=== PATIENT | female | born 1965 | race Caucasian/White ===

== ENCOUNTER 2017-04-25 10:18 | Emergency (ER) | payer SELFPAY ==
[~2017-04-25] VITALS: Ht 175.3 cm; Wt 95.3 kg
[2017-04-25] MEDS ORDERED: ONDANSETRON HCL INJ 2 MG/ML VIAL IV STA ×2 (11:04→12:32)
[2017-04-25] MEDS ORDERED: SODIUM CHLORIDE FLUSH 10 ML SYR INJ PRN (11:15)
[2017-04-25] MEDS ORDERED: SODIUM CHLORIDE 0.9% 1000ML 1,000 ML IV SCH (11:15)
[2017-04-25 11:16] LABS: BASOPHILS # (AUTO) 0.1 (0.0-0.1); BASOPHILS % 0.5 % (0.0-1.0); EOSINOPHILS % 0.1 % (0.0-6.0); HEMATOCRIT 44.1 % (34.2-44.1); HEMOGLOBIN 14.8 g/dL (12.0-16.0); LYMPHOCYTES # (AUTO) 1.7 (1.0-3.2); LYMPHOCYTES % 15.9 % (18.0-39.1); MEAN CORPUSCULAR HEMOGLOBIN 27.2 pg (28-32); MEAN CORPUSCULAR HGB CONC 33.6 g/dL (31-35); MEAN CORPUSCULAR VOLUME 81.1 fL (81-99); MONOCYTES # (AUTO) 0.2 (0.2-0.8); NEUTROPHILS # (AUTO) 8.6 (2.1-6.9); PLATELET COUNT 278 x10e3/uL (140-360); RED BLOOD COUNT 5.44 x10e6/uL (3.6-5.1); RED CELL DISTRIBUTION WIDTH 14.5 % (11.7-14.4)
[2017-04-25 11:29] LABS: ALANINE AMINOTRANSFERASE 106 IU/L (0-55); ALBUMIN 3.8 g/dL (3.5-5.0); ALBUMIN/GLOBULIN RATIO 0.9 (0.8-2.0); ALKALINE PHOSPHATASE 73 IU/L (40-150); ANION GAP 13.8 mmol/L (8-16); BLOOD UREA NITROGEN 12 mg/dL (7-26); BUN/CREATININE RATIO 14 (6-25); CALCIUM 9.5 mg/dL (8.4-10.2); CARBON DIOXIDE 24 mmol/L (22-29); CHLORIDE 106 mmol/L (98-107); CREATINE KINASE 84 IU/L (29-168); CREATININE, SERUM 0.86 mg/dL (0.57-1.11); EST GLOMERULAR FILTRATION RATE > 60 ML/MIN (60-); GLUCOSE 174 mg/dL (74-118); POTASSIUM 3.8 mmol/L (3.5-5.1); SODIUM 140 mmol/L (136-145)
[2017-04-25 11:35] LABS: TROPONIN I < 0.001 ng/mL (0-0.300)
--- NOTE | 2017-04-25 12:19 | Diagnostic Imaging Report ---
PROCEDURE: A single AP view of the chest. COMPARISON: Chest x-ray 01/27/2009. INDICATIONS: DYSPNEA FINDINGS: Lines/tubes: None. Lungs: The lungs are well inflated and clear. There is no evidence of pneumonia or pulmonary edema. Pleura: There is no pleural effusion or pneumothorax. Heart and mediastinum: The heart and the mediastinum are unremarkable. Bones: No acute bony abnormality. IMPRESSION: No acute cardiopulmonary disease. Dictated by: Gonzalo Burch M.D. on 04/25/2017 at 12:27 Electronically approved by: Gonzalo Burch M.D. on 04/25/2017 at 12:27
[2017-04-25] MEDS ORDERED: MORPHINE SULFATE 2 MG/ML SYR IV STA (12:32)
[2017-04-25] MEDS ORDERED: PROMETHAZINE 12.5MG/ NACL 0.9% 12.5 MG/50 ML BAG IV ONE (14:30)
[2017-04-25 15:07] LABS: BILIRUBIN,URINE NEGATIVE (NEGATIVE); KETONES,URINE 2+ (NEGATIVE); LEUKOCYTE ESTERASE ,URINE NEGATIVE (NEGATIVE); NITRITE,URINE NEGATIVE (NEGATIVE); URINE UROBILINOGEN 0.2 mg/dL (0.2 - 1)
[2017-04-25 15:08] LABS: COLOR,URINE YELLOW (YELLOW); PROTEIN,URINE DIPSTICK 1+ (NEGATIVE)
[2017-04-25 15:09] LABS: CLARITY,URINE CLEAR (CLEAR)
[2017-04-25 15:22] LABS: EPITHELIAL CELLS,URINE FEW /LPF; WBC,URINE (MAN) 0-5 /HPF (0-5)
[2017-04-25 15:23] LABS: AMORPHOUS SEDIMENT,URINE FEW (FEW); BACTERIA,URINE FEW /HPF; MUCUS,URINE MODERATE (RARE); RBC,URINE 0-5 /HPF (0-5)
[2017-04-25] MEDS ORDERED: BACITRACIN ZINC 0.9GM TP ONE (15:30)
[2017-04-25 17:33] VITALS: BP 160/81
== END 2017-04-25 17:54 | disposition home or self-care (01) ==
LOC: ER 10:18
DX: R11.2 Nausea with vomiting, unspecified (principal); R19.7 Diarrhea, unspecified; R10.9 Unspecified abdominal pain; A09 Infectious gastroenteritis and colitis, unspecified
CPT/HCPCS: 36415; 71010; 80053; 81001; 82550; 82553; 84484; 85025; 99284; J2270; J2405; J2550; J7030

== ENCOUNTER 2017-05-06 15:37 | Emergency (ER) | payer BC ==
[~2017-05-06] VITALS: Ht 175.3 cm; Wt 95.3 kg
== END 2017-05-06 18:15 | disposition home or self-care (01) ==
LOC: ER 15:37
DX: M79.621 Pain in right upper arm (principal); Z86.718 Personal history of other venous thrombosis and embolism; I10 Essential (primary) hypertension
CPT/HCPCS: 93971; 99282

== ENCOUNTER 2018-09-21 11:37 | Emergency (ER) | payer SELFPAY ==
[~2018-09-21] VITALS: Ht 172.7 cm; Wt 92.5 kg
--- OUTSIDE RECORDS SUMMARY | 2018-09-21 11:40 | XMS REPORT | Encounter Summary ---
Author Organization Unknown Address [address] [place] [id number] Phone [phone] Care Team Providers Care Fork Repairer Name Role Phone Tyler Brewer MD 3 [phone] Reason for Visit Insomnia; Anxiety Instructions 1. Insomnia 2. Anxiety alprazolam 1 mg tablet Discussion Note: None recorded. Patient educational handouts: No information available. Plan of Care Reminders Provider Appointments Return to Office on or around 08/31/2018 Tyler Huffman MD Lab None recorded. Referral None recorded. Procedures None recorded. Surgeries None recorded. Imaging None recorded. Medications Name Start Date alprazolam 0.5 mg tablet Take 1 tablet every day by oral route as needed for 30 days. alprazolam 1 mg tablet take 1 tablet at bedtime and 0.5 in the mornings as needed. B Complex-Vitamin B12 tablet Take 1 tablet every day by oral route. Baby Aspirin 1 tab every day gabapentin 600 mg tablet TAKE ONE (1) TABLET(S) BY MOUTH FOUR TIMES A DAY. lansoprazole 30 mg capsule,delayed release TAKE ONE (1) CAPSULE(S) BY MOUTH ONCE A DAY. lisinopril 20 mg-hydrochlorothiazide 12.5 mg tablet TAKE ONE (1) TABLET(S) BY MOUTH ONCE A DAY DIRECTED. appt reminder 07-30-2018 11:00 AM, Tyler Huffman MD multivitamin 1 tab every day pravastatin 80 mg tablet TAKE ONE (1) TABLET(S) BY MOUTH ONCE A DAY. sumatriptan 100 mg tablet TAKE ONE (1) TABLET(S) BY MOUTH DAILY NEEDED AT ONSET OF HEADACHE. MAY REPEAT IN 2 HOURS IF NEEDED. MAX OF 2 TABS IN A 24 HOUR PERIOD. tramadol 50 mg tablet TAKE ONE (1) TABLET(S) BY MOUTH FOUR TIMES A DAY. venlafaxine ER 150 mg capsule,extended release 24 hr TAKE ONE (1) CAPSULE(S) BY MOUTH ONCE A DAY. zolpidem 10 mg tablet TAKE ONE (1) TABLET(S) BY MOUTH ONCE A DAY AT BEDTIME. Medications Administered None recorded. Vitals Height Weight BMI Blood Pressure 5 ft 8 in 209 lbs 31.8 kg/m2 116/80 mm[Hg] Lab Results None recorded. Allergies Code Code System Name Reaction Severity Status Onset NKDA Problems Name Status Onset Date Source Anxiety Active 01/11/2016 Hyperlipidemia Active 10/12/2016 Insomnia Active 10/12/2016 Benign Essential Hypertension Active 10/12/2016 Acid Reflux Active 10/12/2016 Procedures Date Name Performed by 04/23/2002 Other Information not available Vaccine List Vaccine Type Hep B, unspecified formulation 09/04/2016 Influenza, injectable, MDCK, preservative free, quadrivalent 01/11/20160.5 mL influenza, unspecified formulation 04/23/2014 Tdap 09/04/2016 TST-PPD carla test 09/04/2016 Social History Smoking Status Former Smoker (1 PPW) Past Encounters 08/01/2018 Insomnia; Anxiety Tyler Jm Huffman MD: [address] [place] [address], Ph. History of Present Illness Note:F/u on insomnia and CHAD. Complaining of difficulty staying asleep (sleeping just 3-4 hrs per night). Anxiety has remained stable. Denies restlessness, nervousness, panic attacks, suicidal/homicidal thoughts. Occasional episodes of sadness, lack of energy and poor motivation. Review of Systems Comprehensive General Adult ROS Reported By: Patient Cardiovascular: Cardiovascular: no chest pain, no palpitations, no lightheadedness Respiratory: Respiratory: no cough, no wheezing, no shortness of breath Gastrointestinal: Gastrointestinal: no abdominal pain, no nausea, no vomiting, no constipation, no diarrhea Neurologic: Neurologic: no loss of consciousness, no headaches Psychiatric: Psych: no depression, no alcohol abuse, no suicidal thoughts, sleep disturbances, anxiety Physical Exam General Adult Exam (male) Reported By: Patient Constitutional: General Appearance: healthy-appearing, obese. Level of Distress: NAD Psychiatric: Insight: good judgement. Mental Status: active and alert, normal mood, normal affect. Orientation: to time, to place, to person Head: Head: normocephalic, atraumatic Eyes: Lids and Conjunctivae: non-injected, no discharge Neck: Neck: supple Lungs: Auscultation: breath sounds normal Cardiovascular: Heart Auscultation: RRR, normal S1, normal S2, no murmurs Neurologic: Gait and Station: normal gait. Cranial Nerves: grossly intact. Coordination and Cerebellum: no tremor
--- OUTSIDE RECORDS SUMMARY | 2018-09-21 11:40 | XMS REPORT ---
Author Author [facility] Address Unknown Phone Unavailable Care Team Providers Care Hazardous Substances Engineer Name Role Phone Ana CORONEL Unavailable Unavailable Problems This patient has no known problems. Allergies, Adverse Reactions, Alerts This patient has no known allergies or adverse reactions. Medications This patient has no known medications. Results Test Description Test Time Test Comments Text Results Atomic Results Result Comments CHEST SINGLE (PORTABLE) [place] [address] Patient Name: SARAH BHAT MR #: [id number] : 1965 Age/Sex: 51/F Req #: [id number] Adm Physician: Ordered by: LEONARDA ALATORRE Report #: [id number] Location: ER Room/Bed: Procedure: [id number] DX/CHEST SINGLE (PORTABLE) Exam Date: 04/25/17 Exam Time: 1200 REPORT STATUS: Signed PROCEDURE: A single AP view of the chest. COMPARISON: Chest x-ray 01/27/2009. INDICATIONS: DYSPNEA FINDINGS: Lines/tubes: None. Lungs: The lungs are well inflated and clear. There is no evidence of pneumonia or pulmonary edema. Pleura: There is no pleural effusion or pneumothorax. Heart and mediastinum: The heart and the mediastinum are unremarkable. Bones: No acute bony abnormality. IMPRESSION: No acute cardiopulmonary disease. Dictated by: Tati Burch M.D. on 04/25/2017 at 12:27 Electronically approved by: Tati Burch M.D. on 04/25/2017 at 12:27 Dictated By: TATI BURCH MD 26 Transcribed By: TONO on 04/25/171226 COPY TO: LEONARDA ALATORRE
--- OUTSIDE RECORDS SUMMARY | 2018-09-21 11:40 | XMS REPORT ---
Author Organization Unknown Address [address] [place] [address] Phone [phone] Care Team Providers Care Driver Manager Name Role Phone Tyler Bertrand Unavailable Unavailable Allergies Code Code System Name Reaction Severity Status Onset NKDA Medications Name Status Start Date Stop Date alprazolam 0.5 mg tablet TAKE ONE (1) TABLET(S) BY MOUTH ONCE A DAY NEEDED. Active Not available B Complex-Vitamin B12 tablet Take 1 tablet every day by oral route. Active Not available Baby Aspirin 1 tab every day Active Not available buspirone 10 mg tablet Take 1 tablet twice a day by oral route for 60 days. Completed 05/03/2016 Fish Oil 1 tablet daily Active Not available Fluvirin [id number] 45 mcg (15 mcg x 3)/0.5 mL intramuscular suspension Completed 01/11/2016 gabapentin 600 mg tablet TAKE ONE (1) TABLET(S) BY MOUTH FOUR TIMES A DAY. Active Not available lansoprazole 30 mg capsule,delayed release TAKE ONE (1) CAPSULE(S) BY MOUTH ONCE A DAY. Active Not available lisinopril 20 mg tablet Completed 10/12/2016 lisinopril 20 mg-hydrochlorothiazide 12.5 mg tablet TAKE ONE (1) TABLET(S) BY MOUTH ONCE A DAY DIRECTED. Active Not available lorazepam 1 mg tablet Completed 01/11/2016 meloxicam 15 mg tablet Take 1 tablet every day by oral route as needed for 30 days. Completed 07/10/2017 methylprednisolone acetate 80 mg/mL suspension for injection Take 1 mL by injection route. Completed 01/09/2017 multivitamin 1 tab every day Active Not available naproxen 500 mg tablet Take 1 tablet(s) twice a day by oral route with meals. Completed 01/09/2017 pravastatin 80 mg tablet TAKE ONE (1) TABLET(S) BY MOUTH ONCE A DAY. Active Not available PreserVision AREDS 2 tablets BID Completed 04/12/2017 sumatriptan 100 mg tablet TAKE ONE (1) TABLET(S) BY MOUTH DAILY NEEDED AT ONSET OF HEADACHE. MAY REPEAT IN 2 HOURS IF NEEDED. MAX OF 2 TABS IN A 24 HOUR PERIOD. Active Not available tramadol 50 mg tablet TAKE ONE (1) TABLET(S) BY MOUTH FOUR TIMES A DAY NEEDED. Active Not available venlafaxine ER 150 mg capsule,extended release 24 hr TAKE ONE (1) CAPSULE(S) BY MOUTH ONCE A DAY. Active Not available venlafaxine ER 150 mg tablet,extended release 24 hr TAKE ONE (1) TABLET(S) BY MOUTH ONCE A DAY. Completed 10/12/2016 zolpidem 10 mg tablet Completed 01/11/2016 zolpidem ER 12.5 mg tablet,extended release,multiphase TAKE ONE (1) TABLET(S) BY MOUTH EVERY DAY NEEDED Completed 07/10/2017 Problems Name Status Onset Date Source Hyperlipidemia Unknown 01/11/2016 Anxiety Active 01/11/2016 Migraine Unknown 01/11/2016 Hypertensive Disorder Unknown 01/11/2016 Gastroesophageal Reflux Disease Unknown 01/11/2016 Osteoarthrosis of the Carpometacarpal Joint of the Thumb Unknown 01/11/2016 Bursitis of Hip Unknown 01/11/2016 Insomnia Unknown 02/10/2016 Hyperlipidemia Active 10/12/2016 Insomnia Active 10/12/2016 Benign Essential Hypertension Active 10/12/2016 Acid Reflux Active 10/12/2016 Procedures Date Name Performed by 04/23/2002 Other Notes: ablation uterus Information not available 10/12/[address] [facility] [id number] [place] [address] (Work [address]) Notes: ablation of the uterus-12 years ago Lab Results Date Name Specimen Result Interpretation Description Value Range Status Address 04/12/2017 CMP, Serum or Plasma High Glucose 126 mg/dL 65-99 mg/dL Final [facility]: [address] Normal Urea Nitrogen (BUN) 16 mg/dL 7-25 mg/dL Final [facility]: [address] [place] [address], [place] Normal Creatinine 0.83 mg/dL 0.50-1.05 mg/dL Final [facility]: [address] Normal eGFR Non-afr. Luxembour[place] 81 mL/min/1.73m2 > or=60 mL/min/1.73m2 Final [facility] [address] [facility] eGFR 93 mL/min/1.73m2 > or=60 mL/min/1.73m2 Final [facility]: [address] [facility] BUN/creatinine Ratio not applicable (calc) 6-22 (calc) Final [facility]: [address] [facility] Normal Sodium 142 mmol/L 135-146 mmol/L Final [facility]: [address] [facility] Normal Potassium 4.3 mmol/L 3.5-5.3 mmol/L Final [facility]: [address] [facility] Normal Chloride 102 mmol/L 98-110 mmol/L Final [facility]: [address] [facility] Normal Carbon Dioxide 27 mmol/L 20-31 mmol/L Final [facility]: [address] [facility] Normal Calcium 9.4 mg/dL 8.6-10.4 mg/dL Final [facility]: [address] [facility] Normal Protein, Total 7.3 g/dL 6.1-8.1 g/dL Final [facility]: [address] [facility] Normal Albumin 4.2 g/dL 3.6-5.1 g/dL Final [facility]: [address] [facility] Normal Globulin 3.1 g/dL (calc) 1.9-3.7 g/dL (calc) Final [facility]: [address] [facility] Normal Albumin/globulin Ratio 1.4 (calc) 1.0-2.5 (calc) Final [facility]: [address] [facility] Normal Bilirubin, Total 0.3 mg/dL 0.2-1.2 mg/dL Final [facility]: [address] [facility] Normal Alkaline Phosphatase 58 U/L 33-130 U/L Final [facility]: [address] [facility] Normal Ast 17 U/L 10-35 U/L Final [facility]: [address] [facility] Normal Alt 14 U/L 6-29 U/L Final [facility]: [address] [facility] 04/12/2017 Lipid Panel, Serum Normal Cholesterol, Total 179 mg/dL <200 mg/dL Final [facility]: [address] [place] Low HDL Cholesterol 46 mg/dL >50 mg/dL Final [facility]: [address] [facility] [place] High Triglycerides 331 mg/dL <150 mg/dL Final [facility]: [address] [place] Normal LDL-cholesterol 89 mg/dL (calc) Final [facility]: [address] Normal Chol/hdlc Ratio 3.9 (calc) <5.0 (calc) Final [facility]: [address] [place] High Non HDL Cholesterol 133 mg/dL (calc) <130 mg/dL (calc) Final [facility]: [address] [facility] 10/12/2016 TSH, Serum or Plasma Normal Tsh 0.99 mIU/L Final [facility]: [address] [facility] 10/12/2016 CBC W/ Auto Diff Normal White Blood Cell Count 6.8 thousand/uL 3.8-10.8 thousand/uL Final [facility]: [address] [place] [address] Normal Red Blood Cell Count 4.75 million/uL 3.80-5.10 million/uL Final [facility]: [address] [facility] Normal Hemoglobin 13.1 g/dL 11.7-15.5 g/dL Final [facility]: [address] [facility] Normal Hematocrit 40.5 % 35.0-45.0 % Final [facility]: [address] [facility] Normal Mcv 85.3 fL 80.0-100.0 fL Final [facility]: [address] [facility] Normal Mch 27.6 pg 27.0-33.0 pg Final [facility]: [address] [facility] Normal Mchc 32.4 g/dL 32.0-36.0 g/dL Final [facility]: [address] [facility] High Rdw 15.2 % 11.0-15.0 % Final [facility]: [address] Ashraf [place] Normal Platelet Count 239 thousand/uL 140-400 thousand/uL Final [facility]: [address]raf [place] Normal Mpv 9.1 fL 7.5-12.5 fL Final [facility]: [address] Ashraf [place] Normal Absolute Neutrophils 3910 cells/uL 1494-6016 cells/uL Final [facility]: [address] [place] Normal Absolute Lymphocytes 2373 cells/uL 850-3900 cells/uL Final [facility]: [address] [place] Normal Absolute Monocytes 347 cells/uL 200-950 cells/uL Final [facility]: [address] [place] Normal Absolute Eosinophils 143 cells/uL 15-500 cells/uL Final [facility]: [address] [place] Normal Absolute Basophils 27 cells/uL 0-200 cells/uL Final [facility]: [address] [place] Normal Neutrophils 57.5 % Final [facility]: [address] [place] Normal Lymphocytes 34.9 % Final [facility]: [address] [place] Normal Monocytes 5.1 % Final [facility]: [address] [place] Normal Eosinophils 2.1 % Final [facility]: [address] [place] Normal Basophils 0.4 % Final [facility]: [address] [facility] 10/12/2016 Lipid Panel, Serum Normal Cholesterol, Total 158 mg/dL 125- 200 mg/dL Final [facility]: [address] [facility] Normal HDL Cholesterol 55 mg/dL > or=46 mg/dL Final [facility]: [address] [facility] High Triglycerides 162 mg/dL <150 mg/dL Final [facility]: [address] [facility] Normal LDL-cholesterol 71 mg/dL (calc) <130 mg/dL (calc) Final [facility]: [address] [facility] Normal Chol/hdlc Ratio 2.9 (calc) < or=5.0 (calc) Final [facility]: [address] Normal Non HDL Cholesterol 103 mg/dL (calc) Final [facility]: [address] [facility] 10/12/2016 CMP, Serum or Plasma High Glucose 101 mg/dL 65-99 mg/dL Final [facility]: [address] Normal Urea Nitrogen (BUN) 20 mg/dL 7-25 mg/dL Final [facility]: [address] Normal Creatinine 0.79 mg/dL 0.50-1.05 mg/dL Final [facility]: [address] Normal eGFR Non-afr. [place] 85 mL/min/1.73m2 > or=60 mL/min/1.73m2 Final [facility]: [address] Normal eGFR 99 mL/min/1.73m2 > or=60 mL/min/1.73m2 Final [facility]: [address] BUN/creatinine Ratio not applicable (calc) 6-22 (calc) Final [facility]: [address] Normal Sodium 140 mmol/L 135-146 mmol/L Final [facility]: [address] Normal Potassium 4.6 mmol/L 3.5-5.3 mmol/L Final [facility]: [address] Normal Chloride 101 mmol/L 98-110 mmol/L Final [facility]: [address] Normal Carbon Dioxide 31 mmol/L 20-31 mmol/L Final [facility]: [address] Normal Calcium 9.4 mg/dL 8.6-10.4 mg/dL Final [facility]: [address] Normal Protein, Total 6.8 g/dL 6.1-8.1 g/dL Final [facility]: [address] Normal Albumin 4.1 g/dL 3.6-5.1 g/dL Final [facility]: [address] Normal Globulin 2.7 g/dL (calc) 1.9-3.7 g/dL (calc) Final [facility]: [address] Normal Albumin/globulin Ratio 1.5 (calc) 1.0-2.5 (calc) Final [facility]: [address] Normal Bilirubin, Total 0.3 mg/dL 0.2-1.2 mg/dL Final [facility]: [address] Normal Alkaline Phosphatase 61 U/L 33-130 U/L Final [facility]: [address] Normal Ast 25 U/L 10-35 U/L Final [facility]: [address] Normal Alt 28 U/L 6-29 U/L Final [facility]: [address] [facility] 07/10/2016 CMP, Serum or Plasma Alt 19 U/L 0-55 U/L Final [facility]: [address] Ast 18 U/L 5-34 U/L Final [facility]: [address] Bun 18 mg/dL 7-20 mg/dL Final [facility]: [address] Alk Phos 64 unit/L 40-150 unit/L Final [facility]: [address] Low Glucose 69 mg/dL 70-99 mg/dL Final [facility]: [address] Albumin 4.1 g/dL 3.5-5.0 g/dL Final [facility]: [address] Creatinine 0.85 mg/dL 0.57-1.11 mg/dL Final [facility]: [address] eGFR Non- >60 mL/min/1.73m2 >60 mL/min/1.73m2 Final [facility]: [address] Total Bilirubin 0.3 mg/dL 0.2-1.2 mg/dL Final [facility]: [address] eGFR - >60 mL/min/1.73m2 >60 mL/min/1.73m2 Final [facility]: [address] Sodium 141 mEq/L 137-144 mEq/L Final [facility]: [address] [place] [address], [place] Potassium 4.7 mEq/L 3.5-5.0 mEq/L Final [facility]: [address] [place] [address], [place] Chloride 104 mmol/L 101-110 mmol/L Final [facility]: [address] Total Protein 7.6 g/dL 6.4-8.3 g/dL Final [facility]: [address] [place] [address], [place] Calcium 9.4 mg/dL 8.4-10.2 mg/dL Final [facility]: [address] [place] [place] [address], [place] Co2 23.8 mmol/L 21.0-29.0 mmol/L Final [facility]: [address] Anion Gap 13 calc Final [facility]: [address] [place] [address], [place] 07/10/2016 Lipid Panel, Serum Hdl 51 mg/dL 40-60 mg/dL Final [facility]: [address] High Triglyceride 285 mg/dL 0-149 mg/dL Final [facility]: [address] VLDL Calc. 57 mg/dL Final [facility]: [address] cholesterol/HDL Ratio 5 mg/dL Final [facility]: [address] High non-HDL Cholesterol Calc. 196 mg/dL 0-160 mg/dL Final [facility]: [address] High Cholesterol 247 mg/dL 0-199 mg/dL Final [facility]: [address] High LDL Calc. 139 mg/dL 0-130 mg/dL Final [facility]: [address] [place] [place] [address], [place] 01/14/2016 Drug Screen, Urine No observation recorded. [facility]: [address] [facility] [place] 11/12/2015 Historical Labs No observation recorded. 05/11/2015 CBC W/ Auto Diff No observation recorded. 09/01/2014 CMP, Serum or Plasma No observation recorded. Electrocardiogram No observation recorded. [facility]: [address] [place] [address] Urinalysis, Dipstick Color Glucose negative [facility]: [address] [facility], [place] Color Bilirubin negative [facility]: [address] [facility], [place] Color Ketones negative [facility]: [address] [facility] [place] Color Specific Oliver 1.020 [facility]: [address] [facility] [place] Color Blood negative [facility]: [address] [facility], [place] Color PH 5.5 [facility]: [address] [facility] [place] Color Protein negative [facility]: [address] [facility] [place] Color Urobilinogen 0.2 [facility]: [address] [facility], [place] Color Nitrites negative [facility]: [address] [facility], [place] Color Leukocytes negative [facility]: [address] [facility], [place] Past Encounters 07/10/2017 Anxiety; Hyperlipidemia; Acid Reflux; Bursitis of Hip; Benign Essential Hypertension; Migraine; Hyperglycemia Tyler Huffman MD: [address] [place] [phone], Ph. 04/12/2017 Bursitis of Hip; Anxiety; Hyperlipidemia; Hand Pain Tyler Huffman MD: [address] [place] [phone], Ph. 01/09/2017 Insomnia; Anxiety; Bursitis of Hip Tyler Huffman MD: [address] [place] [phone], Ph. 10/12/2016 Adult Health Examination; Anxiety; Acid Reflux; Benign Essential Hypertension; Hyperlipidemia; Insomnia; Bursitis of Hip; Radial Styloid Tenosynovitis Tyler Huffman MD: [address] [place] [phone], Ph. 07/10/2016 Anxiety; Insomnia; Bursitis of Hip; Benign Essential Hypertension; Hyperlipidemia; Body Mass Index 30+ - Obesity Tyler Huffman MD: [address] [place] [address], Ph. 05/03/2016 Anxiety Tyler Huffman MD: [address] [place] [address], Ph. 04/20/2016 Insomnia; Anxiety Tyler Huffman MD: [address] [place] [phone], Ph. 01/11/2016 Bursitis of Hip; Migraine; Anxiety; Long-term Drug Therapy; Influenza Vaccination Tyler Huffman MD: [address] [place] [phone], Ph. Social History Smoking Status Former Smoker (1 PPW) Notes: quit :age 30 Vaccine List Vaccine Type Hep B, unspecified formulation 09/04/2016 Influenza, injectable, MDCK, preservative free, quadrivalent 01/11/20160.5 mL influenza, unspecified formulation 04/23/2014 Tdap 09/04/2016 TST-PPD carla test 09/04/2016 Plan of Care Reminders Provider Appointments None recorded. Lab None recorded. Referral None recorded. Procedures None recorded. Surgeries None recorded. Imaging None recorded. Vitals 07/10/2017 02:45PM Est Patient Height Weight Blood Pressure 5 ft 8 in 138/80 mm[Hg] 04/12/2017 01:45PM Est Patient Height Weight BMI Blood Pressure 5 ft 8 in 210 lbs 31.9 kg/m2 118/78 mm[Hg] 01/09/2017 04:00PM Est Patient Height Weight BMI Blood Pressure 5 ft 8 in 212 lbs 32.2 kg/m2 (1) 144/94 mm[Hg] (2) 138/88 mm[Hg] 10/12/2016 08:30AM ATHLETIC GEAR CUSTODIAN/EST CPX Height Weight BMI Blood Pressure 5 ft 8 in 212 lbs 32.2 kg/m2 (1) 152/102 mm[Hg] (2) 136/84 mm[Hg] 07/10/2016 04:30PM Work In Same Day Height Weight BMI Blood Pressure 5 ft 8 in 216 lbs 32.8 kg/m2 (1) 156/98 mm[Hg] (2) 144/97 mm[Hg] 05/03/2016 04:30PM Est Patient Height Weight BMI Blood Pressure 5 ft 8 in 216 lbs 32.8 kg/m2 139/98 mm[Hg] 04/20/2016 11:45AM Est Patient Height Weight Blood Pressure 5 ft 8 in 135/90 mm[Hg] 01/11/2016 11:30AM Est Patient Height Weight BMI Blood Pressure 5 ft 8 in 208 lbs 31.6 kg/m2 141/87 mm[Hg]
--- NOTE | 2018-09-21 12:31 | Diagnostic Imaging Report ---
EXAMINATION: CXR 1 VIEW - HOPD INDICATION: Swallowed a nail. COMPARISON: None FINDINGS: TUBES and LINES: None. LUNGS: Lungs are well inflated. Lungs are clear. There is no evidence of pneumonia or pulmonary edema. PLEURA: No pleural effusion or pneumothorax. HEART AND MEDIASTINUM: The cardiomediastinal silhouette is unremarkable. BONES AND SOFT TISSUES: No acute osseous lesion. UPPER ABDOMEN: No free air under the diaphragm. No radiopaque foreign body. IMPRESSION: No acute thoracic abnormality. No radiopaque foreign body. Signed by: Dr. Dex Singh M.D. on 09/21/2018 12:27 PM
--- NOTE | 2018-09-21 12:34 | Diagnostic Imaging Report ---
EXAM: ABDOMEN COMPLETE - HOPD, DATE: 09/21/2018 12:00 AM INDICATION: Swallowed a nail. COMPARISON: None FINDINGS: LINES/TUBES: None. BOWEL PATTERN: No evidence for obstruction. SOFT TISSUES: Cholecystectomy clips. There is a 2.5 cm metallic nail projected on the left mid abdomen which could be within distal stomach or a proximal small bowel loop. Cholecystectomy clips. LUNG BASES: Not included BONES: No acute findings. IMPRESSION: 2.5 cm metallic nail projected on the left mid abdomen which could be within distal stomach or a proximal small bowel loop. Signed by: Dr. Dex Singh M.D. on 09/21/2018 12:30 PM
[2018-09-21] MEDS ORDERED: LANSOPRAZOLE30 MG (13:43)
[2018-09-21] MEDS ORDERED: VENLAFAXINE HCL75 MG PO (13:43)
[2018-09-21] MEDS ORDERED: ULTRAM50 MG PO (13:43)
[2018-09-21] MEDS ORDERED: GABAPENTIN400 MG PO (13:43)
[2018-09-21] MEDS ORDERED: LISINOPRIL-HCT1 EACH (13:43)
[2018-09-21] MEDS ORDERED: PRAVASTATIN SOD80 MG (13:43)
[2018-09-21] MEDS ORDERED: SUMATRIPTAN SUC25 MG PO (13:43)
[2018-09-21] MEDS ORDERED: ALPRAZOLAM0.5 M1 (13:43)
[2018-09-21 13:55] VITALS: BP 118/69
== END 2018-09-21 13:08 | disposition home or self-care (01) ==
LOC: FSED 11:37
DX: T18.2XXA Foreign body in stomach, initial encounter (principal); X58.XXXA Exposure to other specified factors, initial encounter; Y92.008 Other place in unspecified non-institutional (private) residence as the place of occurrence of the external cause
CPT/HCPCS: 71045; 74022; 99283

== ENCOUNTER 2018-09-27 13:30 | Emergency (ER) | payer SELFPAY ==
[~2018-09-27] VITALS: Ht 172.7 cm; Wt 92.5 kg
[~2018-09-27 13:30] MED LIST: ALPRAZOLAM0.5 M1; GABAPENTIN400 MG PO; LANSOPRAZOLE30 MG; LISINOPRIL-HCT1 EACH; PRAVASTATIN SOD80 MG; SUMATRIPTAN SUC25 MG PO; ULTRAM50 MG PO; VENLAFAXINE HCL75 MG PO
--- NOTE | 2018-09-27 14:37 | Diagnostic Imaging Report ---
Exam: Abdominal radiograph History: Abdominal pain Comparison: None. Findings: No fracture. Nonobstructive bowel gas pattern. Large amount of stool throughout the colon. Right upper quadrant clips. Impression: Large amount of stool throughout the colon. Signed by: Dr. Del Mccracken M.D. on 09/27/2018 2:34 PM
== END 2018-09-27 15:03 | disposition home or self-care (01) ==
LOC: FSED 13:30
DX: R10.84 Generalized abdominal pain (principal); I10 Essential (primary) hypertension; E78.5 Hyperlipidemia, unspecified; F41.9 Anxiety disorder, unspecified; G98.8 Other disorders of nervous system
CPT/HCPCS: 74018; 99282

== ENCOUNTER 2021-07-15 12:15 | Emergency (ER) | payer SELFPAY ==
[~2021-07-15] VITALS: Ht 175.3 cm; Wt 93.0 kg
[2021-07-15] MEDS ORDERED: PREDNISONE 20 MG TAB PO ONE (13:45)
[2021-07-15] MEDS ORDERED: KETOROLAC TROMETHAMINE 60 MG/2 ML VIAL IM ONE (13:45)
[2021-07-15] MEDS ORDERED: KETOROLAC TROMETHAMINE 60 MG/2 ML VIAL ONE (13:55)
[2021-07-15] MEDS ORDERED: PREDNISONE 20 MG TAB ONE (13:55)
[2021-07-15] MEDS ORDERED: PREDNISONE50 MG PO (14:17)
[2021-07-15] MEDS ORDERED: METHOCARBAMOL750 MG PO (14:18)
[2021-07-15] MEDS ORDERED: ULTRAM 50MG50 MG PO (14:19)
== END 2021-07-15 15:08 | disposition home or self-care (01) ==
LOC: FSED 12:26
DX: M54.12 Radiculopathy, cervical region (principal); I10 Essential (primary) hypertension; E78.5 Hyperlipidemia, unspecified; F41.9 Anxiety disorder, unspecified
CPT/HCPCS: 99283; J1885; J7512

== ENCOUNTER 2021-11-30 12:09 | Emergency (ER) | payer SELFPAY ==
[~2021-11-30] VITALS: Ht 175.3 cm; Wt 93.0 kg
[~2021-11-30 12:09] MED LIST changes: +METHOCARBAMOL750 MG PO; +PREDNISONE50 MG PO; +ULTRAM 50MG50 MG PO
[2021-11-30] MEDS ORDERED: FAMOTIDINE 20 MG/2 ML VIAL IV STA (12:39)
[2021-11-30] MEDS ORDERED: ASPIRIN 325 MG TAB PO ONE (12:45)
[2021-11-30] MEDS ORDERED: ACETAMINOPHEN 325 MG TAB ONE (12:58)
[2021-11-30] MEDS ORDERED: FAMOTIDINE 20 MG/2 ML VIAL IV ONE (12:58)
[2021-11-30] MEDS ORDERED: DONNATAL/LIDOCAINE/MAALOX 30 ML SUSP PO ONE (14:30)
[2021-11-30] MEDS ORDERED: LIDOCAINE VISC 2% SOLN 15 ML UDC ONE (14:31)
[2021-11-30] MEDS ORDERED: BELLADONNA ALK/PHENOBARBITAL 5 ML UDC ONE (14:31)
[2021-11-30] MEDS ORDERED: MAGNESIUM/ALUMINUM/SIMETHICONE 30 ML UDC ONE (14:31)
[2021-11-30 16:58] VITALS: BP 161/98
== END 2021-11-30 16:24 | disposition left against medical advice (07) ==
LOC: FSED 12:31
DX: R07.9 Chest pain, unspecified (principal); R77.8 Other specified abnormalities of plasma proteins; R19.7 Diarrhea, unspecified; I10 Essential (primary) hypertension; E78.5 Hyperlipidemia, unspecified; F41.9 Anxiety disorder, unspecified; R94.31 Abnormal electrocardiogram [ECG] [EKG]
CPT/HCPCS: 71045; 80053; 83880; 84484; 85025; 85610; 93005; 99284

== ENCOUNTER 2021-11-30 19:04 | Emergency (ER) | payer SELFPAY ==
[~2021-11-30] VITALS: Ht 175.3 cm; Wt 93.0 kg
[2021-11-30 19:59] LABS: CREATINE KINASE MB 4.2 ng/mL (0-5.0)
[2021-11-30] MEDS ORDERED: CLOPIDOGREL BISULFATE 75 MG TAB PO ONE (20:00)
[2021-11-30] MEDS ORDERED: Morphine 4mg INJECTION 4 MG/ML INJ IV ONE (20:00)
[2021-11-30] MEDS ORDERED: ASPIRIN 81 MG CHEW TAB PO ONE (20:00)
[2021-11-30] MEDS ORDERED: ONDANSETRON HCL INJ 2MG/ML 2ML 2 MG/ML VIAL IV STA (20:00)
[2021-11-30] MEDS ORDERED: CLOPIDOGREL BISULFATE 75 MG TAB ONE (20:17)
[2021-11-30 20:18] LABS: BASOPHILS # (AUTO) 0.1 (0.0-0.1); BASOPHILS % 0.5 % (0.0-1.0); EOSINOPHILS # (AUTO) 0.1 (0.0-0.4); EOSINOPHILS % 0.6 % (0.0-6.0); HEMATOCRIT 42.4 % (34.2-44.1); HEMOGLOBIN 13.8 g/dL (12.0-16.0); LYMPHOCYTES # (AUTO) 2.7 (1.0-3.2); LYMPHOCYTES % 25.9 % (18.0-39.1); MEAN CORPUSCULAR HEMOGLOBIN 29.7 pg (28-32); MEAN CORPUSCULAR HGB CONC 32.5 g/dL (31-35); MEAN CORPUSCULAR VOLUME 91.2 fL (81-99); MONOCYTES # (AUTO) 0.5 (0.2-0.8); MONOCYTES % 5.2 % (4.4-11.3); NEUTROPHILS # (AUTO) 6.9 (2.1-6.9); NEUTROPHILS % 67.5 % (38.7-80.0); PLATELET COUNT 268 x10e3/uL (140-360); RED BLOOD COUNT 4.65 x10e6/uL (3.6-5.1); RED CELL DISTRIBUTION WIDTH 13.2 % (11.7-14.4)
[2021-11-30] MEDS ORDERED: Morphine 4mg INJECTION 4 MG/ML INJ ONE (20:20)
[2021-11-30] MEDS ORDERED: ONDANSETRON HCL INJ 2MG/ML 2ML 2 MG/ML VIAL ONE (20:20)
[2021-11-30 20:30] LABS: ALBUMIN 3.8 g/dL (3.5-5.0); ALBUMIN/GLOBULIN RATIO 0.9 (0.8-2.0); ANION GAP 18.4 mmol/L (8-16); CALCIUM 9.1 mg/dL (8.4-10.2); CREATININE, SERUM 0.84 mg/dL (0.57-1.11); POTASSIUM 3.4 mmol/L (3.5-5.1)
[2021-11-30 20:31] LABS: INR 0.9; PARTIAL THROMBOPLASTIN TIME 23.7 seconds (23.8-35.5)
[2021-11-30] MEDS ORDERED: HEPARIN SOD (PORCINE) 5,000 UNIT/ML VIAL IV ONE (20:45)
[2021-11-30] MEDS ORDERED: HEPARIN 25,000 UNIT 900 UNIT in DEXTROSE 5% 250ML 250 ML IV SCH (20:45)
[2021-11-30] MEDS ORDERED: NITROGLYCERIN 2% OINT 1 GM PKT TOP ONE (20:45)
[2021-11-30] MEDS ORDERED: HEPARIN 25,000 UNIT DRIP IV ONE (21:03)
[2021-11-30 21:33] VITALS: BP 135/82
== END 2021-11-30 21:38 | disposition other institution (70) ==
LOC: ER 19:08
DX: R07.9 Chest pain, unspecified (principal); I21.4 Non-ST elevation (NSTEMI) myocardial infarction; R94.31 Abnormal electrocardiogram [ECG] [EKG]; I10 Essential (primary) hypertension; E78.5 Hyperlipidemia, unspecified; F41.9 Anxiety disorder, unspecified; Z20.822 Contact with and (suspected) exposure to COVID-19
CPT/HCPCS: 36415; 80053; 82550; 82553; 84484; 85025; 85610; 85730; 93005; 99284; J1644; J2270; J2405; U0002

== ENCOUNTER 2023-11-26 02:05 | Emergency (ER) | payer OTHER ==
[~2023-11-26] VITALS: Ht 175.3 cm; Wt 94.3 kg
[2023-11-26 02:26] VITALS: PULSE 98; RESP 18; TEMP 97.8; O2SAT 96
== END 2023-11-26 03:04 | disposition home or self-care (01) ==
LOC: FSED 02:16
DX: S42.291A Other displaced fracture of upper end of right humerus, initial encounter for closed fracture (principal); W01.0XXA Fall on same level from slipping, tripping and stumbling without subsequent striking against object, initial encounter; Y93.01 Activity, walking, marching and hiking; Y92.89 Other specified places as the place of occurrence of the external cause; I10 Essential (primary) hypertension; E78.5 Hyperlipidemia, unspecified; F41.9 Anxiety disorder, unspecified; F32.A Depression, unspecified
CPT/HCPCS: 99283

== ENCOUNTER 2024-06-02 07:14 | Emergency (ER) | payer OTHER ==
[~2024-06-02] VITALS: Ht 175.3 cm; Wt 94.3 kg
[2024-06-02 07:21] VITALS: PULSE 109; RESP 18; TEMP 99.6; O2SAT 97
[2024-06-02] MEDS: IBUPROFEN 400 MG TAB PO ONE (08:29)
== END 2024-06-02 08:59 | disposition home or self-care (01) ==
LOC: ER 07:21
DX: S70.01XA Contusion of right hip, initial encounter (principal); M25.511 Pain in right shoulder; W01.0XXA Fall on same level from slipping, tripping and stumbling without subsequent striking against object, initial encounter; Y93.01 Activity, walking, marching and hiking; Y92.89 Other specified places as the place of occurrence of the external cause; I10 Essential (primary) hypertension; E78.5 Hyperlipidemia, unspecified; K21.9 Gastro-esophageal reflux disease without esophagitis; F41.9 Anxiety disorder, unspecified
CPT/HCPCS: 99283